=== PATIENT | male | born 1965 | race African-American/Black ===

== ENCOUNTER 2018-01-22 08:25 | Observation (INO) | payer SELFPAY ==
[2018-01-22 09:48] LABS: #Basophils 0.1 thou/uL (0.0-0.2); #Eosinphils 0.1 thou/uL (0.0-0.7); #Lymphocytes 1.8 thou/uL (1.20-3.40); #Monocytes 0.6 thou/uL (0.11-0.59); #Neutrophils 4.1 thou/uL (1.40-6.50); %Basophils 1.2 % (0.0-1.0); %Eosinophils 1.1 % (0.0-10.0); %Lymphocytes 27.4 % (21.0-51.0); %Monocytes 9.2 % (0.0-10.0); %Neutrophils 61.1 % (42.0-75.0); Hemoglobin 15.7 g/dL (14.0-18.0); Mean Corpuscular HGB CONC 33.4 g/dL (32.0-36.0); Mean Corpuscular Hemoglobin 32.8 pg (27.0-31.0); Mean Corpuscular Volume 98.4 fL (78.0-98.0); Mean Platelet Volume 6.9 fL (7.4-10.4); Platelet Count 327 thou/uL (130-400); RBC Distribution Width 11.8 % (11.5-14.5); Red Blood Cell (RBC) Count 4.79 mill/uL (4.70-6.10); White Blood Cell (WBC) Count 6.6 thou/uL (4.8-10.8)
[2018-01-22 09:59] LABS: ALT (SGPT) 15 U/L (8-55); AST (SGOT) 19 U/L (5-34); Albumin 4.7 g/dL (3.5-5.0); Alkaline Phosphatase 99 U/L (40-150); Anion Gap 13 mmol/L (10-20); BUN (Urea Nitrogen) 15 mg/dL (8.4-25.7); Bilirubin, Total 1.2 mg/dL (0.2-1.2); CK (CPK) 514 U/L (30-200); Calc. Creatinine Clearance 0 mL/min (70-130); Calcium 9.9 mg/dL (7.8-10.44); Carbon Dioxide 23 mmol/L (22-29); Chloride 105 mmol/L (98-107); Estimated GFR-MDRD 77; Globulin 3.2 g/dL (2.4-3.5); Glucose 112 mg/dL (70-105); Lipase 18 U/L (8-78); Protein, Total 7.9 g/dL (6.0-8.3); Sodium 137 mmol/L (136-145)
[2018-01-22 10:04] LABS: CKMB 2.6 ng/mL (0-6.6); Troponin I Less than 0.010 ng/mL (< 0.028)
--- NOTE | 2018-01-22 10:19 | RAD ---
SINGLE VIEW OF THE CHEST: Comparison: None. History: Dizziness, seizures, chest pain. FINDINGS: Single view of the chest shows a normal sized cardiomediastinal silhouette. There is no evidence of c onsolidation, mass, or pleural effusion. The bones are unremarkable. IMPRESSION: No evidence of acute cardiopulmonary disease. POS: [facility]
[2018-01-22 10:40] LABS: Bilirubin Negative (Negative); Blood, Urine Negative (Negative); Clarity CLEAR (Clear); Glucose, Urine (Dipstick) Negative (Negative); Leukocyte Small (Negative); Nitrite Negative (Negative); Protein, Urine (Dipstick) Trace mg/dL (Neg-Trace); pH, Urine 6.5 (5.0-9.0)
[2018-01-22 10:48] LABS: Bacteria/HPF None Seen HPF (None Seen); Hyaline Casts/LPF 4-6 HYALINE CAST LPF (0-3 Hyaline); Pathc Cast-AUWi Flag 0.29 (0-2.49); RBC/HPF 0-3 HPF (0-3); Squamous Epithelial 0-3 HPF (0-3)
[2018-01-22 10:52] LABS: Amphetamine Not Detected (NotDetected); Barbiturates Screen Not Detected (NotDetected); Benzodiazepine Screen Not Detected (NotDetected); Cocaine Metabolite Screen Not Detected (NotDetected); Medtox Control Line Valid? VALID (VALID); Medtox Reader # READER 4; Methadone Not Detected (NotDetected); Methamphetamine Not Detected (NotDetected); Opiate Screen Not Detected (NotDetected); Oxycodone Screen Not Detected (NotDetected); Phencyclidine (PCP) Not Detected (NotDetected); THC/Cannabinoid Screen Detected (NotDetected); Tricyclic Screen Not Detected (NotDetected)
[2018-01-22] MEDS ORDERED: cefTRIAXone\\ROCEPHIN 1 GM VIAL ONE (11:52)
[2018-01-22] MEDS ORDERED: Nitroglycerin 2% Ointment 1 INCH/1 GM Packet ONE (11:52)
--- NOTE | 2018-01-22 12:34 | PDOC.FPRHP ---
- History of Present Illness Chief Complaint: chest pain History of Present Illness: Resident: Alexander Zamora MD PCP: Elisabeth Tanner Seferino Espinosa is a 52 year old M with a PMH of HTN, HLD, and unspecified seizure disorder who presents to the ED with c/o chest pain. Patient states that for the last few days he has had several episodes are sharp, substernal chest pain. The pain occurs suddenly when he is physically exerting himself. He moves furniture for work. He states that the pain radiates to the right arm and it is relieved by rest. Chest pain associated with nausea and diaphoresis. He has no taken any medications. He came to the ED because this morning, he woke up to go to the restroom and while he was in the restroom, the chest pain started again and he became lightheaded and almost fell down but he caught himself on the sink. Denies losing consciousness. He states that lately he has otherwise been in normal health. In regards to his seizure disorder, he is supposed to be taking dilantin, but he has been out of his medication for over a month. During that time, he states that he had one seizure that "lasted an hour", where his hands were shaking. The dose of the dilantin is unknown and he takes no other medications. He has no history of chest pain in the past and has never had any cardiac workup in the past. ED Course: In the ED, he received 1 g ceftriaxone, 1 L NS, nitro and aspirin - Allergies/Adverse Reactions Allergies Allergy/AdvReac Type Severity Reaction Status Date / Time No Known Drug Allergies Allergy Verified 01/22/18 14:09 - Home Medications Comments: He was on an unknown dose of dilantin but has not taken any medications in a month - History PMHx: HTN, HLD, Hx of seizure disorder PSHx: None FHx: Social: Denies drug use, he is a 1 ppd smoker and drinks about 5 alcohol beverages a day - Review of Systems General: denies: fever/chills, weight/appetite/sleep changes, night sweats, fatigue Eyes: denies: eye pain, vision changes ENT: denies: nasal congestion, rhinorrhea Respiratory: denies: cough, congestion, shortness of breath, exercise intolerance Cardiovascular: reports: chest pain, orthopnea. denies: palpitation, edema, paroxysmal nocturnal dyspnea Gastrointestinal: reports: nausea. denies: vomiting, diarrhea, constipation, abdominal pain, GI bleeding Genitourinary: reports: dysuria (a little burning once last week). denies: incontinence, polyuria, discharge Skin: denies: rashes, lesions, jaundice, itching Musculoskeletal: denies: pain, tenderness, stiffness, swelling, arthritis/ arthralgias Neurological: reports: seizure, weakness. denies: numbness, syncope Psychological: denies: anxiety, depression - Vital signs BP: 138/92 HR: 66 RR: 16 Tmax: 98.5 Pox: 100% on RA Wt: 83 kg - Physical Exam Constitutional: NAD, awake, alert and oriented, well developed HEENT: normocephalic and atraumatic, PERRLA, EOMI, conjunctiva clear, no scleral icterus, grossly normal vision, TM's clear and intact, grossly normal hearing, normal nasal mucosa, MMM, oropharynx clear Neck: supple, FROM, trachea midline, no LAD, no JVD, no bruits Chest: no-tender to palpation, no lesions Heart: RRR, normal S1/S2, no murmurs/rubs/gallops, pulses present, no edema Lungs: CTAB, no respiratory distress, good air movement, no rales/rhonchi, no wheezing, no retractions Abdomen: soft, non-tender, bowel sounds present, no masses/distention Musculoskeletal: normal structure, normal tone, ROM grossly normal Neurological: no focal deficit, CN II-XII intact, normal sensation Skin: no rash/lesions, good turgor, capillary refill <2 seconds Heme/Lymphatic: no unusual bruising or bleeding, no purpura, no petechia Psychiatric: normal mood and affect, good judgment and insight, intact recent and remote memory FMR H&P: Results - Labs Result Diagrams: 01/22/18 08:52 01/22/18 08:52 Lab results: WBC 6.6 thou/uL (4.8-10.8) 01/22/18 08:52 Hgb 15.7 g/dL (14.0-18.0) 01/22/18 08:52 Hct 47.1 % (42.0-52.0) 01/22/18 08:52 MCV 98.4 fL (78.0-98.0) H 01/22/18 08:52 Plt Count 327 thou/uL (130-400) 01/22/18 08:52 Neutrophils % 61.1 % (42.0-75.0) 01/22/18 08:52 Sodium 137 mmol/L (136-145) 01/22/18 08:52 Potassium 4.0 mmol/L (3.5-5.1) 01/22/18 08:52 Chloride 105 mmol/L (98-107) 01/22/18 08:52 Carbon Dioxide 23 mmol/L (22-29) 01/22/18 08:52 BUN 15 mg/dL (8.4-25.7) 01/22/18 08:52 Creatinine 1.02 mg/dL (0.6-1.3) 01/22/18 08:52 Glucose 112 mg/dL (70-105) H 01/22/18 08:52 Calcium 9.9 mg/dL (7.8-10.44) 01/22/18 08:52 Total Bilirubin 1.2 mg/dL (0.2-1.2) 01/22/18 08:52 AST 19 U/L (5-34) 01/22/18 08:52 ALT 15 U/L (8-55) 01/22/18 08:52 Alkaline Phosphatase 99 U/L (40-150) 01/22/18 08:52 Creatine Kinase 514 U/L (30-200) H 01/22/18 08:52 CK-MB (CK-2) 2.6 ng/mL (0-6.6) 01/22/18 08:52 Serum Total Protein 7.9 g/dL (6.0-8.3) 01/22/18 08:52 Albumin 4.7 g/dL (3.5-5.0) 01/22/18 08:52 Lipase 18 U/L (8-78) 01/22/18 08:52 Urine Ketones Trace mg/dL (Negative) H 01/22/18 10:27 Urine Blood Negative (Negative) 01/22/18 10:27 Urine Nitrite Negative (Negative) 01/22/18 10:27 Ur Leukocyte Esterase Small (Negative) H 01/22/18 10:27 Urine RBC 0-3 HPF (0-3) 01/22/18 10:27 Urine WBC 11-20 HPF (0-3) H 01/22/18 10:27 Ur Squamous Epith Cells 0-3 HPF (0-3) 01/22/18 10:27 Urine Bacteria None Seen HPF (None Seen) 01/22/18 10:27 - EKG Interpretation EKst degree heart blood and incomplete bundle branch block and LVH - Radiology Interpretation Chest x-ray Status: image reviewed by me (No acute cardiopulmonary processes) FMR H&P: A/P - Problem List (1) Chest pain Status: Acute Code(s): R07.9 - CHEST PAIN, UNSPECIFIED (2) Pyuria Status: Acute Code(s): N39.0 - URINARY TRACT INFECTION, SITE NOT SPECIFIED (3) HTN (hypertension) Status: Chronic Code(s): I10 - ESSENTIAL (PRIMARY) HYPERTENSION (4) HLD (hyperlipidemia) Status: Chronic Code(s): E78.5 - HYPERLIPIDEMIA, UNSPECIFIED (5) Seizure disorder Status: Chronic Code(s): G40.909 - EPILEPSY, UNSP, NOT INTRACTABLE, WITHOUT STATUS EPILEPTICUS (6) Alcohol abuse Status: Chronic Code(s): F10.10 - ALCOHOL ABUSE, UNCOMPLICATED - Plan 1) Chest pain: suspicious for cardiac etiology - 3-4 day history of substernal CP associated with nausea and diaphoresis relieved with rest - Place on Tele/Obs - Trend troponins, initial troponin negative - EKG showed 1st degree heart block and LVH - Stress test in AM - Check Echo - Check Mag, Phos, TSH, HgA1c, FLP 2) Pyuria - Denies dysuria, increased urinary frequency, discharge - S/p 1 dose of ceftriaxone 1 g - Hold Abx at this time, check urine culture - Check GC/Ch 3) HTN - Will start Amlodipine - Initial BP 138/92 4) HLD - Checking fasting lipid panel - no home meds 5) Seizure disorder - hx of taking dilantin - ran out of medication one month ago - last seizure per pt was one week ago, described an hour long of hand tremors Diet: HH incl low Na, NPO @ midnight Activity: Ad albina CODE STATUS: FULL CODE FMR H&P: Upper Level - Pertinent history 52 yo male here for dizziness and CP. Pt has Hx of HTN, HLD, seizures. 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 Pain midsternal, sharp, radiates to right arm. Resolves with rest. Assoc nausea, diaphoresis. This morning he reports dizziness and the same CP at rest. Does not take any medications for HTN or HLD. Also has history of epileptic seizures. He has been on dilantin in the past, but ran out in a month. Moved to this area from [place] 6 months ago and has not seen a neurologist or PCP at least since that time. He describes a seizure episode last week where he was shaking for about an hour, but did not lose consciousness. - Pertinent findings 131/79 HR: 63 O2: 100% on RA RR: 19 EKG: borderline sinus gris, QRS prolonged GEN: no acute distress Card: RRR, S1, S2, no m/g/r Pulm: CTAB Ext: no swelling or edema Abd: BS4, soft nontender - Plan Date/Time: 01/22/18 1233 I, Higinio Holley DO, have evaluated this patient and agree with findings/plan as outlined by hr intern resident. Pertinent changes/additions are listed here. CP, r/o ACS HEART score of 3, will plan for stress test in the AM trops negative x 1, continue to trend ECHO for mildly abnormal EKG findings pyuria on UA received rocephin in ER, will hold for no since he denies any symptoms consistent with UTI Check gonorrhea/ chlamydia culture urine HTN: continue to monitor stable at this time HLD: consider checking lipid profile to risk stratify patient needs to follow up with PCP in the area Hx of seizures patient's history does not sound like seizure activity will hold dilantin for now and monitor Attending Addendum - Attending Addendum Date/Time: 01/22/18 5589 I personally evaluated the patient and discussed the management with Dr. Zamora and Dr. Holley I agree with the History, Examination, Assessment and Plan documented above with any addition or exceptions noted below. 52 yo male presented for evaluation of chest pain. On history concerning for angina. Will admit and trend CE and EKGs. Stress in AM if no progression. Evaluate other needs for primary prevention. ECHO due to evidence of LVH and repolarization abnormalities. Unsure if need for anticonvulsant at this time. Per history does not appear to be seizure activity. Needs outpatient evaluation. ABrayMD
[2018-01-22] MEDS ORDERED: Nitroglycerin 0.4 MG TAB (25 Tab Bottle) PO PRN (13:22)
[2018-01-22] MEDS ORDERED: Acetaminophen 325 MG TAB PO PRN (13:22)
[2018-01-22] MEDS ORDERED: Ondansetron ODT 4 MG TAB PO PRN (13:22)
[2018-01-22 13:54] LABS: Hemoglobin A1c 5.7 % (4.0-6.0)
[2018-01-22 14:07] LABS: Troponin I 0.012 ng/mL (< 0.028)
[2018-01-22 14:10] LABS: Magnesium 2.2 mg/dL (1.6-2.6); Phosphorus 2.7 mg/dL (2.3-4.7)
[2018-01-22] MEDS: Sodium Chloride 0.9% 1,000 ML IV SCH ×2 (14:20→22:35)
[2018-01-22 14:32] VITALS: BMI 31.7
[2018-01-22 16:36] LABS: Troponin I Less than 0.010 ng/mL (< 0.028)
[2018-01-23 04:52] LABS: Cardiac Risk 7.1 (Less than 4.5)
--- NOTE | 2018-01-23 06:08 | PDOC.FM ---
- Subjective Subjective: Seferino Espinosa seen at bedside this morning. He did well overnight, there were no acute events. He has no complaints this morning. He has not experienced any chest pain since admission. Denies fever, chills, dyspnea, n/v. Scheduled for stress test today. - Objective MAR Reviewed: Yes Vital Signs & Weight: Vital Signs (12 hours) Temp Pulse Resp BP Pulse Ox 01/23/18 04:00 98.2 F 56 L 12 116/59 L 97 01/22/18 20:27 95 01/22/18 19:30 99.1 F 66 16 01/22/18 18:36 99.1 F 66 16 132/70 94 L Weight Weight 83.915 kg I&O: 01/21/18 01/22/18 01/23/18 06:59 06:59 06:59 Intake Total 475 Balance 475 Result Diagrams: 01/22/18 08:52 01/22/18 08:52 <Alexander Zamora - Last Filed: 01/23/18 08:58> - Objective Vital Signs & Weight: Vital Signs (12 hours) Temp Pulse Resp BP Pulse Ox 01/23/18 09:14 98.4 F 55 L 16 01/23/18 08:00 98.4 F 55 L 16 134/81 100 01/23/18 04:00 98.2 F 56 L 12 116/59 L 97 Weight Weight 83.915 kg I&O: 01/22/18 01/23/18 01/24/18 06:59 06:59 06:59 Intake Total 1898 Balance 1898 Result Diagrams: 01/22/18 08:52 01/22/18 08:52 <Tarun Coy - Last Filed: 01/23/18 11:31> Phys Exam - Physical Examination Constitutional: NAD HEENT: moist MMs, sclera anicteric Neck: no JVD, supple, full ROM Respiratory: no wheezing, no rales, no rhonchi, clear to auscultation bilateral Cardiovascular: RRR, no significant murmur Gastrointestinal: soft, non-tender, no distention Musculoskeletal: no edema, pulses present Neurological: non-focal, normal sensation, moves all 4 limbs Psychiatric: normal affect, A&O x 3 Skin: no rash, normal turgor <Alexander Zamora - Last Filed: 01/23/18 08:58> Dx/Plan (1) Chest pain Code(s): R07.9 - CHEST PAIN, UNSPECIFIED Status: Acute (2) Pyuria Code(s): N39.0 - URINARY TRACT INFECTION, SITE NOT SPECIFIED Status: Acute (3) HTN (hypertension) Code(s): I10 - ESSENTIAL (PRIMARY) HYPERTENSION Status: Chronic (4) HLD (hyperlipidemia) Code(s): E78.5 - HYPERLIPIDEMIA, UNSPECIFIED Status: Chronic (5) Seizure disorder Code(s): G40.909 - EPILEPSY, UNSP, NOT INTRACTABLE, WITHOUT STATUS EPILEPTICUS Status: Chronic (6) Alcohol abuse Code(s): F10.10 - ALCOHOL ABUSE, UNCOMPLICATED Status: Chronic - Plan Plan: 1) Chest pain: suspicious for cardiac etiology - 3-4 day history of substernal CP associated with nausea and diaphoresis relieved with rest - Trops neg X3 - EKG showed 1st degree heart block and LVH - Stress test in AM - Check Echo - Normal Mag, Phos, TSH 2) Pyuria - Denies dysuria, increased urinary frequency, discharge - S/p 1 dose of ceftriaxone 1 g - Hold Abx at this time, check urine culture - Check GC/Ch 3) HTN - Initial BP 138/92 - BP this morning is 116/59 4) HLD - Checking fasting lipid panel - start statin today 5) Seizure disorder - hx of taking dilantin - ran out of medication one month ago - last seizure per pt was one week ago, described an hour long of hand tremors - hold dilantin at this time <Alexander Zamora - Last Filed: 01/23/18 08:58> Attending Addendum - Attending Addendum Date/Time: 01/23/18 1129 I personally evaluated the patient and discussed the management with Dr. Zamora I agree with the History, Examination, Assessment and Plan documented above with any addition or exceptions noted below.Stress test today and further evaluation pending results. Patient with pending GC, chlamydia which will need f /u regard evaluation pyuria with neg C&S. <Tarun Coy - Last Filed: 01/23/18 11:31>
[2018-01-23] MEDS: Sodium Chloride 0.9% 1,000 ML IV SCH ×2 (06:39→17:09)
[2018-01-23] MEDS ORDERED: Enoxaparin Sodium 40 MG/0.4 ML SYRINGE SC SCH (09:00)
[2018-01-23] MEDS ORDERED: Regadenoson 0.4 MG/5 ML SYRINGE ONE (09:32)
[2018-01-23 16:44] VITALS: BP 171/91; TEMP 98
--- NOTE | 2018-01-23 17:09 | NM ---
RADIONUCLIDE STRESS REST MYOCARDIAL PERFUSION SCAN WITH CT ATTENUATION CORRECTION AND SPECT IMAGING LEFT VENTRICULAR WALL MOTION EVALUATION AND EJECTION FRACTION 01/23/18 HISTORY: Chest pain. FINDINGS: Lexiscan protocol. There is homogeneous uptake of radiotracer throughout the left ventricular myocardium. No focal perfu umer defect or reversibility. QGS analysis of gated SPECT images shows no focal wall motion abnormalities. Left ventricular ejectio n fraction is calculated at 62%. IMPRESSION: Normal myocardial perfusion scan. Normal LVEF. POS: [facility]
[2018-01-23] MEDS ORDERED: Atorvastatin Calcium 40 MG TAB PO SCH (21:00)
--- NOTE | 2018-01-24 04:21 | DIS-2 ---
DATE OF ADMISSION: 01/22/2018 DATE OF DISCHARGE: 01/23/2018 RESIDENT: Alexander Zamora M.D. ADMITTING ATTENDING: Dr. Shaina Rai. DISCHARGE ATTENDING: Dr. Tarun Coy. CONSULTATIONS: None. PROCEDURES: 1. Chest x-ray on 01/22/2018. Impression: No acute cardiopulmonary process. 2. Nuclear medicine stress test. No focal wall motion abnormalities, normal LVEF, no signs of rever sible ischemia or infarction. Normal stress test. PRIMARY DIAGNOSIS: Atypical chest pain, rule out. SECONDARY DIAGNOSES: 1. Hypertension. 2. Hyperlipidemia. 3. Seizure disorder. 4. Pyuria. DISCHARGE MEDICATIONS: 1. Aspirin 81 mg p.o. daily. 2. Atorvastatin 40 mg p.o. at bedtime. HISTORY OF PRESENT ILLNESS AND HOSPITAL COURSE: Seferino Espinosa is a 52-year-old male with past medical history of hypertension, hyperlipidemia, and unspecified seizure disorder, who presented to the ED w ith complaint of chest pain. He stated that he had been having it for the last few days, several epi sodes of sharp substernal chest pain. Whenever he is physically exerting himself, he moves furniture for work and that has been recurring and radiates to his right arm and it is relieved by rest. The chest pain is associated with nausea and diaphoresis. He takes no medications. He woke up the morni ng of admission and had chest pain again and became lightheaded, almost fell down. He did not lose c onsciousness. No evidence of seizure at that time. The patient was admitted for chest pain rule out , suspicious for cardiac etiology. He had a HEART score of 4. He was placed on telemetry/observatio n. Troponins were trended, all were negative. EKG showed first degree heart block with LVH. Stress test was ordered and performed the next morning and was negative results as above. The patient also had sterile pyuria. Gonorrhea and chlamydia tests were performed and are still pending. After norm al stress, the patient was cleared for discharge on 01/23/2018. He had no recurrence of the chest pa in. He was started on a statin and aspirin and advised to follow up with new primary care provider. [facility] left their information for followup. DISPOSITION: Stable. The patient should do well if he continues to take his medications and follows up with primary care provider to establish care. DISCHARGE INSTRUCTIONS: 1. Location: Home. 2. Diet: Heart healthy. 3. Activity: As tolerated. 4. Followup: Follow up with primary care provider in 1 week.
--- NOTE | 2018-01-24 15:20 | EKG ---
Test Reason : Blood Pressure : / mmHG Vent. Rate : 066 BPM Atrial Rate : 066 BPM P-R Int : 224 ms QRS Dur : 100 ms QT Int : 412 ms P-R-T Axes : 065 017 031 degrees QTc Int : 431 ms Sinus rhythm with 1st degree A-V block Otherwise normal ECG Confirmed by AREN BARRAZA MD ([id number]), soaker helper TANNER JOEL ([id number]) on 01/24/2018 3:19:51 PM Referred By: Confirmed By:AREN BARRAZA MD
--- NOTE | 2018-01-25 11:33 | STRESS ---
Acquisition Time: 2018-01-23 13:15:26 Total Exercise Time: 00:01:00 Test Indications: CHEST PAIN Medications: Protocol: LEXISCAN Max HR: 104 BPM 61% of Pred: 169 BPM Max BP: 146/078 mmHG Max Work Load: 1.0 METS RESTING ECG: NORMAL SINUS RHYTHM AT 52 BPM SYMTPOMS: SHORTNESS OF BREATH NORMAL BP RESPONSE ECTOPY: NONE ECG STRESS: NO SIGNIFICANT CHANGES INTERPRETATION: AWAIT NUCLEAR IMAGES FOR DEFINITIVE DIAGNOSIS Confirmed by ESTHER FLORES ([id number]), script editor JILLIAN RANGEL ([id number] on 01/25/2018 11:32:42 AM Referred By: Anastacio PRESTON Confirmed By:ESTHER FLORES
[2018-01-25 16:41] LABS: Chlamydia by PCR Not Detected (NotDetected); GC by PCR Not Detected (NotDetected)
== END 2018-01-23 18:43 | disposition home or self-care (01) ==
LOC: ERS 08:25 → 2SW 12:52
PROVIDERS: ADMIT Family Medicine; ATTEND Family Medicine
DX: R07.89 Other chest pain (principal); I10 Essential (primary) hypertension; E78.5 Hyperlipidemia, unspecified; G40.909 Epilepsy, unspecified, not intractable, without status epilepticus; N39.0 Urinary tract infection, site not specified; F10.10 Alcohol abuse, uncomplicated; F17.210 Nicotine dependence, cigarettes, uncomplicated
CPT/HCPCS: 36415; 71045; 78452; 80053; 80061; 80306; 81003; 81015; 82553; 83036; 83690; 83735; 84100; 84443; 84484; 85025; 87086; 87491; 87591; 90471; 90732; 93005; 93017; 94760; 96361; 96365; A9500; G0009; G0378; J0696; J1650; J2785